=== PATIENT | male | born 1970 ===

== ENCOUNTER → 2022-04-21 | Day surgery (SDC) | payer BC ==
[~2022-04-21] MED LIST: Propofol 200 MG/20 ML SDV IV ONE; Sodium Chloride 0.9% 10 ML Syringe FLUSH PRN
[2022-04-21 09:24] VITALS: BP 128/96; PULSE 85
[2022-04-21] MEDS: Lactated Ringers 1,000 ML IV SCH (09:34)
== END | disposition home or self-care (01) ==
LOC: FB.SDS 09:00
PROVIDERS: ATTEND Surgery
DX: Z12.11 Encounter for screening for malignant neoplasm of colon (principal); K21.9 Gastro-esophageal reflux disease without esophagitis; F41.9 Anxiety disorder, unspecified; F32.A Depression, unspecified; Z79.899 Other long term (current) drug therapy
CPT/HCPCS: 00812-QZ; J2704; J7120